=== PATIENT | female | born 1950 | race Caucasian/White ===

== ENCOUNTER 2016-11-12 09:17 | Inpatient (IN) | payer MEDICARE ==
[2016-11-12] VITALS (10 sets, daily range): BP systolic 136–170; BP diastolic 61–90; PULSE 54–71; RESP 13–20; O2SAT 90–97
[~2016-11-12] VITALS: Ht 165.1 cm; Wt 117.1 kg
--- NOTE | 2016-11-12 07:54 | PCM.HPANE ---
Patient Data Surgeon Admitting Provider: Attending Provider:Sage Paz MD Primary Care Physician:Luz Maria Espitia MD Other Provider:Emani Vasquezingham Anesthesia Reason for Visit Left Knee Arthritis LEFT KNEE ARTHRITIS Ht/WT & BMI Height (Feet): 5 Height (Inches): 5 Weight (Kilograms): 120.20 Body Mass Index 44.00 Allergies Coded Allergies: erythromycin base (Verified Allergy, Unknown, 11/08/16) Past Anesthesia History Anesthesia History: Denies:: Anesthesia Reactions Diabetes History Hx Diabetes?: No Medications Blood Thinner: Aspirin Hypertension Medication: Yes Home Meds Incl Beta Bri: Yes Reported Medications Tolterodine Tartrate (Detrol)1 Mg Tablet1 Mg PO BID 11/08/16 Losartan Potassium (Cozaar)50 Mg Gkplxd35 Mg PO DAILY 11/08/16 Levothyroxine 25 Mcg Khvyvt10 Mcg PO DAILY Ref 0 11/08/16 Hydrochlorothiazide 25 Mg Jslyru76 Mg PO DAILY 30 Days Ref 0 11/08/16 Doxazosin (Cardura)8 Mg Tablet8 Mg PO BID Ref 0 11/08/16 Carvedilol (Coreg)12.5 Mg Odgrct73.75 Mg PO BID Ref 0 11/08/16 Aspirin 81 Mg Nrttii54 Mg PO DAILY Ref 0 11/08/16 Discontinued Reported Medications [place]-3 Fatty Acids/Fish Oil ([place] 3 1,000 mg Softgel)1 Each Capsule1 Each PO DAILY 11/08/16 Meloxicam 15 Mg Qkchio29 Mg PO DAILY 30 Days Ref 0 11/08/16 Docusate Sodium (Colace)100 Mg Pzqueon064 Mg PO BID PRN For Constipation Ref 0 11/08/16 Cholecalciferol (Vitamin D3) (Vitamin D3)1,000 Unit Tab.chew1,000 Unit PO DAILY 11/08/16 Atorvastatin (Lipitor)20 Mg Bhyswn35 Mg PO DAILY Ref 0 11/08/16 History History of ENT Problems?: No Hx of Heart Problems?: Yes Cardiovascular History: Positive for:: Cardiac Surgery (3 vessel CABG 2013) Coronary Artery Disease Hypertension Hx of Respiratory Problem?: Yes Respiratory History: Positive for:: Chest Surgery (CABG 2013) Dyspnea (SOB on exertion) Denies:: Oxygen Administration Use of C-PAP Machine Hx Neurologic Problems?: No Hx of GI Problems?: No Hx of Problems?: Yes Genitourinary History: Denies:: Kidney Stones Skin History: Denies:: History Skin Disorders? Pressure Ulcers Hx Musculoskeletal Problems?: Yes Musculoskeletal History: Positive for:: Degenerative Joint Musculoskeletal Trauma (left knee current admission problem) Osteoarthritis Denies:: Joint Replacement Hx of Psycho/Social Problems?: No Hx Surgeries?: Yes (3 vessel CABG) Hx Any Other Health Problems?: Yes Other History: Positive for:: Thyroid Disease Denies:: Cancer Hx Diabetes: No Stop/Bang S-Snoring: Do You Snore Loudly: No T-Tired: feel tired, fatigued: No O-Obsered: Observed not breath: No P-Blood Pressure: treated: Yes B- Body Mass Index > 35 kg/m2: Yes A- Age over 50: Yes N- Neck Large Circumference: Yes G- Gender Male: No MARK Total Score: 4 Risk Assessment Category Category 1A: Patient has history of documented sleep apnea, and HAS NOT received any narcotic, sedative or anesthesia administration during this stay. Category 1B: Patient has history of documented sleep apnea, and HAS received any narcotic , sedative or anesthesia administration during this stay Category 2: Patient has SUSPECTED Obstructive Sleep Apnea, and HAS received any narcotic , sedative or anesthesia administration during this stay. Category 3: Patient has SUSPECTED Obstructive Sleep Apnea and HAS NOT received narcotic, sedative or anesthesia administration during this stay. Category 4: Outpatient in Procedural Areas with known sleep apnea or who screen positive for High Risk via the STOP/BANG questionnaire. Exam Exam General Appearance: Oriented X3, Cooperative, No Acute Distress HEENT/AIRWAY: MP 2 Lungs: Normal Air Movement Heart: Regular Rate/Rhythm Plan Impression Patient chart reviewed, patient interviewed and anesthestic plan with risks, benefits, and alternatives discussed, and informed consent obtained. ASA Physical Status: ASA3 Severe Disease Anesthetic Plan: Regional Block, Ultra Sound, SAB Bene/Risks/Altern/Consents: Yes HP Complete Prior to Induction: Yes Sandy Griffin DO Nov 12, 2016 07:54
[~2016-11-12 09:17] MED LIST: ASPI-973 PO; ATOR20TA PO; CAR8A PO; CARV12.5 PO; CHOL10008 PO; CeFAZolin Inj 3 Gm/ D5W 50 mL Bag IV ONE; DOCU-41 PO; HYDR25TA4 PO; LEVO25TA5 PO; LOSA50TA3 PO; Lactated Ringer's 1,000 ML IV ONE; MELO-253 PO; OMEG1CAP56 PO; TOLT1TAB2 PO; Vancomycin Inj 1,000 MG in IV Premix 1 EACH IV ONE; fentaNYL-PF 50 mCg/mL 2 mL Inj ONE
[2016-11-12] MEDS ORDERED: Lactated Ringer's 1,000 ML IV ONE ×2 (09:56→16:02)
[2016-11-12] MEDS ORDERED: Bupivacaine Liposome 1.3% 20 mL Inj ONE (12:17)
[2016-11-12] MEDS ORDERED: Bupivacaine Liposome 1.3% 20 mL Inj INFILTRATE ONE (13:43)
[2016-11-12] MEDS ORDERED: Bupivacaine-MPF 0.25%/EPI 30 mL Inj INFILTRATE ONE (13:43)
[2016-11-12] MEDS ORDERED: Gentamicin 40 mg/mL 2 mL Inj IRRIGATION ONE (13:43)
[2016-11-12] MEDS ORDERED: Lactated Ringer's 500 ML IV PRN (13:47)
[2016-11-12] MEDS ORDERED: Lactated Ringer's 1,000 ML IV SCH (13:47)
[2016-11-12] MEDS ORDERED: Phenylephrine 10,000 mCg/mL Inj IVPUSH PRN (13:50)
[2016-11-12] MEDS ORDERED: Ondansetron 2 mg/mL 2 mL Inj IVPUSH PRN (13:50)
[2016-11-12] MEDS ORDERED: EPHEDrine Sulfate 50 mg/mL Inj IVPUSH PRN (13:50)
[2016-11-12] MEDS ORDERED: MetoCLOpramide 5 mg/mL 2 mL Inj IVPUSH PRN (13:50)
[2016-11-12] MEDS ORDERED: HYDROmorphone 1 mg/mL Inj IVPUSH PRN (13:50)
[2016-11-12] MEDS ORDERED: fentaNYL-PF 50 mCg/mL 2 mL Inj IVPUSH PRN (13:50)
[2016-11-12] MEDS ORDERED: Ropivacaine-PF 0.5% 30 mL Inj ONE (14:00)
[2016-11-12] MEDS ORDERED: Dexamethasone 4 mg/mL Inj ONE (14:00)
[2016-11-12] MEDS ORDERED: Lidocaine PF 1% 30 mL Inj ONE (14:00)
[2016-11-12 15:48] LABS: APPEARANCE,URINE HAZY (CLEAR,HAZY); COLOR,URINE STRAW (YELLOW); OCCULT BLOOD,URINE NEGATIVE (NEGATIVE); PH,URINE 5.5 (5.0-8.0); UROBILINOGEN,URINE NORMAL (NORMAL)
--- NOTE | 2016-11-12 15:51 | DRSVH ---
PROCEDURE: X-RAY LEFT KNEE, ONE OR TWO VIEWS ([id number]) INDICATIONS: CHECK ALIGNMENT TECHNIQUE: 3 view(s) of the knee acquired. COMPARISON: None. FINDINGS: Bones: Patient is status post knee joint arthroplasty. Hardware components are in expected position s. Visualized bony structures are intact. Soft tissues: Overlying postoperative changes are noted. IMPRESSION: Expected appearance status post left knee arthroplasty. Dictated by: Gucci Nuñez [facility] Interpreted: Marti Dai MD on 11/12/2016 at 15:50 Transcribed by: MARINO on 11/12/2016 at 15:50 Approved by: Marti Dai MD, PhD on 11/12/2016 at 17:10
--- NOTE | 2016-11-12 16:05 | NUR ---
transfer pacu to osc 1022 arrived on floor, a/o x 3, in no apparent distress. hrr, bs cl bilat. dressing cdi, hemovac compressed. at bedside and aware of pt's status, instructed and enc to dbc and ank wave and chiqui pump. i
--- NOTE | 2016-11-12 16:21 | PCM.ANEP1 ---
Post Anesthesia Phase 1 PACU Phase 1 Assessment Vital Signs Vital Signs Date Time Temp Pulse Resp B/P Pulse Ox O2 Delivery O2 Flow Rate FiO2 11/12/16 16:04 36.5 55 18 170/80 96 Nasal Cannula 2 11/12/16 15:46 56 20 165/61 96 Nasal Cannula 2 11/12/16 15:34 56 18 167/76 94 Nasal Cannula 2 11/12/16 15:30 57 18 163/76 97 Nasal Cannula 2 11/12/16 15:25 59 14 159/81 97 Nasal Cannula 2 11/12/16 15:20 54 16 164/69 94 Nasal Cannula 2 11/12/16 15:15 18 94 11/12/16 15:15 56 13 136/71 94 Nasal Cannula 2 11/12/16 15:11 36.1 63 13 147/90 90 Room Air 11/12/16 09:43 36.1 56 16 155/70 95 Room Air Anesthetic Administered: SAB Level of Alertness: Awake, talking GARCES's with Equal Strength: No Pain: No Nausea or Vomiting: No Oxygen Delivery: Room Air Lungs: Normal Air Movement Dermatome Level: L1,2 (Groin) Sandy Griffin DO Nov 12, 2016 16:21
--- NOTE | 2016-11-12 16:22 | PCM.ANEP2 ---
Post Anesthesia Evaluation ASA/CMS Post Anesthesia VS in Patient's Normal Range?: Yes Resp Stable; Airway Patent?: Yes CV Function & Hydration Stable: Yes Mental Status Recovered?: Yes Pain control Satisfactory?: Yes N/V Control Satisfactory?: Yes Sandy Griffin DO Nov 12, 2016 16:22
[2016-11-12] MEDS ORDERED: Alum-Mag Hydrox-Simeth 30 mL Suspension PO PRN (16:30)
[2016-11-12] MEDS ORDERED: Ondansetron 8 mg ODT Tablet PO PRN (16:30)
[2016-11-12] MEDS ORDERED: Magnesium Hydroxide 10 mL Oral Concentration PO PRN (16:30)
[2016-11-12] MEDS ORDERED: MetoCLOpramide 5 mg/mL 2 mL Inj IV PRN (16:30)
[2016-11-12] MEDS ORDERED: Sodium Biphos-Phos 133 mL Enema RECTAL PRN (16:30)
[2016-11-12] MEDS ORDERED: HYDROcodone-APAP 5-325 mg Tablet PO PRN (16:30)
[2016-11-12] MEDS: Lactated Ringer's 1,000 ML IV SCH (16:30)
[2016-11-12] MEDS ORDERED: Ondansetron 2 mg/mL 2 mL Inj IV PRN (16:30)
[2016-11-12] MEDS ORDERED: LORazepam 0.5 mg Tablet PO PRN (16:30)
[2016-11-12] MEDS ORDERED: diphenhydrAMINE 25 mg Capsule PO PRN (16:30)
--- NOTE | 2016-11-12 17:47 | OP ---
[address] [address] OPERATIVE REPORT PATIENT: FRANCES LOPEZ : 1950 MR#: [id number] ADMIT: 11/12/2016 JOB ID: [id number] DATE OF SURGERY: 11/12/2016 PREOPERATIVE DIAGNOSIS(ES): Severe arthritis, left knee. POSTOPERATIVE DIAGNOSIS(ES): Severe arthritis, left knee. PROCEDURE: Total knee arthroplasty. SURGEON: Sage Paz MD. TAXATION CONSULTANT: Vianney Iniguez PA-C. Cathode Maker required due to the major complexity of the operation. INDICATIONS: This woman has had profound osteoarthritis symptoms uncontrolled by conservative treatment techniques. She elects for total knee arthroplasty. She understands and accepts the potential for risks and complication which include but are not limited to infection, thromboembolic, neurovascular events as well as potential for implant failure. Understanding these, she wishes to proceed. DESCRIPTION OF PROCEDURE: The patient prepped draped in usual sterile fashion. An anteromedial approach made and the patella was subluxed laterally, cut transversely, sized to a 32. Drill holes were made. Drill hole placed in distal femur and a 5 degree valgus distal femoral cut was made. The alignment apparatus was assembled and the knee was sized to an 8 chamfer cutting block, fixed in appropriate position of rotation, drill holes and chamfer cuts were made. The tibia was cut with the extramedullary tool. Bone fragment removed. It was sized to an E component which was fixed in appropriate position of rotation and trial reductions performed. This knee had very severe motion loss preoperatively of 25 degree flexion contracture with only 80 degrees flexion. Full range of motion was achieved on the table with this construct. All meniscal tissue and osteophytes carefully removed including very large osteophyte off the posterior condyle. Wound was irrigated with sterile irrigant and pressurized lavage followed by pressurized cementation of the components. Excess cement was removed during the curing process. Final construct was assembled. Tourniquet let down. Hemostasis achieved. The knee closed with #2 Quill deep followed by 2-0 Vicryl, 3-0, and a 4-0 intracuticular stitch.
[2016-11-12] MEDS: hydrOXYzine Pamoate 25 mg Capsule PO PRN ×2 (18:24→22:11)
[2016-11-12] MEDS: oxyCODONE-Acetamin 5-325 mg Tablet PO PRN ×3 (18:24→22:10)
[2016-11-12] MEDS: CeFAZolin 2 Gm/50 mL D5W Premix IV SCH (22:13)
[2016-11-12] MEDS: Ketorolac 15 mg/mL Inj IV SCH (22:16)
[2016-11-13 00:55] VITALS: BP 162/79; PULSE 63; RESP 18; O2SAT 94
[2016-11-13] MEDS: Ketorolac 15 mg/mL Inj IV SCH ×2 (02:30→08:46)
[2016-11-13 04:51] VITALS: BP 143/76; PULSE 58; RESP 20; O2SAT 97
[2016-11-13] MEDS: CeFAZolin 2 Gm/50 mL D5W Premix IV SCH (04:57)
[2016-11-13] MEDS: oxyCODONE-Acetamin 5-325 mg Tablet PO PRN ×4 (04:58→20:58)
[2016-11-13 06:00] LABS: BASOPHILS % (AUTO) 0 % (0-3); EOSINOPHILS % (AUTO) 0 % (0-5); Mean Corpuscular Hemoglobin 31.1 pg (27.0-35.0); NEUTROPHILS % (AUTO) 84.9 % (40-74); Platelet Count 211 bil/L (150-400)
[2016-11-13] MEDS ORDERED: CeFAZolin Inj 3 Gm/ D5W 50 mL Bag IV ONE (06:00)
--- NOTE | 2016-11-13 07:12 | PCM.PNORTH ---
Subjective Date of Service: Nov 13, 2016 Visit Information: Reason for Visit Left Knee Arthritis Surgery/Surgery Date L TKA 11/12/16 Post-Op Day # Date of Admission: Nov 12, 2016 at 16:20 Hospital Day # Subjective Found patient awake and alert this morning. Well positioned in bed. No complaints of pain at this time. Discussed usual course of treatment postop and encourage participation with formal physical therapy for mobility. Patient relates that she has been in a state of reduced mobility for some time secondary to her knee and I have encouraged her to take advantage of physical therapy to begin regaining mobility immediately. Patient also relates she has 1 -2 steps within her home to move about and I have asked her to communicate this to physical therapy for step training. Patient relates that she has her spouse at home which will be her caregiver. We have discussed discharge requirements on postop day 3 and patient understands this. Postop General: No Complaints, No Shortness of Breath, No Chest Pain, Good Appetite Pain Management: PO Objective Exam Objective Orientation: Alert and oriented 3 and pleasant. Dressing: Interoperative dressing is clean dry and intact. Wound: Not observed today. Compartments: Calf and thigh are soft and nontender. Mobility/sensation: Toe wiggle and sensation are intact at left lower extremity distally. Abduction wedge: None TONJA hose: Bilateral TONJA hose will be ordered today. Gutierrez: Pleasant and working Drain: Present and working Gait: No gait yet with physical therapy as of this time. Vital Signs and I/O Vital Sign - Last Date Time Temp Pulse Resp B/P Pulse Ox O2 Delivery O2 Flow Rate FiO2 11/13/16 04:51 36.4 58 20 143/76 97 Nasal Cannula 2.00 Intake and Output 11/12/16 11/12/16 11/13/16 Cumulative From/Thru 15:00 23:00 07:00 11/08/16 12:42 - 11/13/16 04:51 Intake Total 1420 ml 100 ml 375 ml 1895 ml Output Total 335 ml 600 ml 425 ml 1360 ml Balance 1085 ml -500 ml -50 ml 535 ml Intake Oral 375 ml 375 ml IV Total 1420 ml 100 ml 1520 ml Output Urine Total 300 ml 590 ml 400 ml 1290 ml Drainage Total 10 ml 25 ml 35 ml Estimated Blood Loss 35 ml 35 ml # Bowel Movements 0 0 Lab & Micro Results Laboratory Tests Test 11/12/16 15:26 11/13/16 05:40 Urine Color Straw (YELLOW) Urine Appearance Hazy (CLEAR,HAZY) Urine pH 5.5 (5.0-8.0) Urine Specific [place] 1.020 (1.003-1.035) Urine Protein Negativemg/dL (NEG,TRACE) Urine Glucose (UA) Negativemg/dL (NEGATIVE) Urine Ketones Negativemg/dL (NEGATIVE) Urine Occult Blood Negative (NEGATIVE) Urine Nitrite Negative (NEGATIVE) Urine Bilirubin Negative (NEGATIVE) Urine Urobilinogen Normalmg/dL (NORMAL) Urine Leukocyte Esterase Negative (NEGATIVE) Urine RBC 0-2/hpf (0-2) Urine WBC 0-5/hpf (0-5) Urine Epithelial Cells Occasional/hpf (NONE-MOD) Urine Crystals None seen (NONE SEEN) Urine Bacteria None/hpf (NONE-FEW) Urine Hyaline Casts None/lpf (NONE) Urine Granular Casts None seen (NONE SEEN) Urine Waxy Casts None seen (NONE SEEN) Urine Red Blood Cell Casts None seen (NONE SEEN) Urine White Blood Cell Casts None seen (NONE SEEN) Urine Mucus None seen (None Seen) Urine Trichomonas None seen (NONE SEEN) Urine Yeast None (NONE SEEN) Urinalysis Comment None Urine Culture Reflexed Not indicated White Blood Count 12.9th/mm3 (3.8-10.1) Red Blood Count 3.99mil/mm3 (3.90-5.20) Hemoglobin 12.4g/dL (12.0-15.6) Hematocrit 37.5% (35.0-46.0) Mean Corpuscular Volume 94.0fL (81-100) Mean Corpuscular Hemoglobin 31.1pg (27.0-35.0) Mean Corpuscular Hemoglobin Concent 33.1% (32.0-37.0) Red Cell Distribution Width 12.4% (12.3-15.4) Platelet Count 211bil/L (150-400) Neutrophils (%) (Auto) 84.9% (40-74) Lymphocytes (%) (Auto) 7.9% (14-46) Monocytes (%) (Auto) 7.0% (4-12) Eosinophils (%) (Auto) 0% (0-5) Basophils (%) (Auto) 0% (0-3) Result Diagram: 11/13/16 0540 General Appearance: Alert, Oriented X3, Cooperative, No Acute Distress Extremities: No Compartment Syndrom Noted, Thigh & Calf Soft/Nontender Postop Sensory Motor: Distal Motor Intact, Movement in Toes, Distal Sensation Intact SURGICAL WOUND : Drain Location Body Site: Knee Wound Drainage Type: Hemovac Activity: Activity per PT, Ambulate with PT (weightbearing as tolerated on the left lower extremity using front wheeled walker.) Catheters: Urethral 2 Way Gutierrez (Gutierrez to be removed postop day 1 after first PT session.) Assessment & Plan Impression Patient is a 66-year-old female who is one-day status post left total knee arthroplasty performed on 11/12/2016. Patient had a reduced level of mobility for some time prior to surgery secondary to knee pain and dysfunction. This may impact mobility postop. Problems: Plan Postop day # 1 from left total knee arthroplasty performed on 11/12/[address] Sage Paz. Weight bearing status: Weightbearing as tolerated on the left lower extremity Mobility aid: Front-wheeled walker Immobilization: None Precautions: Standard total knee precautions. Physical therapy: Continue formal physical therapy for mobility, gait and safety. Patient's spouse is arranging outpatient physical therapy to begin as soon as possible post discharge. Patient had significantly reduced mobility prior to surgery which may impact her mobility postop. Pain control: Continue by mouth pain medication as needed. DVT prophylaxis: ASA 325 mg EC by mouth twice a day 6 weeks postop for DVT prophylaxis. Wound care: Keep wound and dressing clean dry and intact until seen in our office in 2 weeks. Infectious DZ: None Gutierrez: Gutierrez is in an working. Please discontinue Gutierrez today on postop day 1 after first PT session. Please use bedside commode if patient is unable to get to bathroom. Dressing: Interoperative dressing is clean dry and intact. This dressing will be changed on postop day #2. Drain: Perioperative drain is in an working. This should be discontinued today on postop day 1 at 24 hours postop. Abduction wedge: None TONJA hose: Bilateral TONJA hose will be ordered and left TONJA hose should be applied on postop day 2 after dressing change. Nursing communication: 2-week follow-up: Follow-up in 2 weeks at [facility] orthopedic clinic on prearranged appointment with mid-level provider for wound check and suture removal. 6-week follow-up: Follow-up in 6 weeks at [facility] orthopedic clinic with Dr. Sage Paz with 2 view left knee x-rays on arrival. Discharge plan: Anticipate discharge to home with spouse as caregiver on or before postop day #3 Iván Walker PA-C Nov 13, 2016 07:11
[2016-11-13] MEDS: Lactated Ringer's 1,000 ML IV SCH (09:59)
[2016-11-13 10:16] VITALS: BP 158/82; PULSE 62; RESP 17; O2SAT 98
[2016-11-13 13:32] VITALS: BP 178/82; PULSE 61; RESP 18; O2SAT 97
--- NOTE | 2016-11-13 16:03 | NUR ---
Social work Continued Discharge Planning: SW attempted to meet with patient at bedside. Patient bust by staff at this time. SW to report at a later time. Patient is a 66 year old female admitted on 11/12/16 for left knee arthritis. Patient resides in [place] with . Patient working with therapy and therapy recommending home vs SNF. Recommendations for home with further progression with rehab per notes. SW to follow up with PT to ensure home safety at discharge. SW to follow. PLAN: Home with via POV, pending clinical course and further PT progression. SW to follow. Dung HER
[2016-11-13] MEDS: hydrOXYzine Pamoate 25 mg Capsule PO PRN ×2 (16:12→20:56)
--- NOTE | 2016-11-13 19:46 | NUR ---
Blakely Catheter, Hemovac Removal Blakely catheterremoved per orders. Patient voiding without difficulty post blakely removal. Hemovac tubing disconnected during patient care. Hemovac removed, pressure applied, dressing placed over removal site. Care is ongoing.
[2016-11-13 20:00] VITALS: BP 131/69; PULSE 64; RESP 18; O2SAT 92
[2016-11-14] MEDS: hydrOXYzine Pamoate 25 mg Capsule PO PRN ×2 (01:09→06:47)
[2016-11-14] MEDS: oxyCODONE-Acetamin 5-325 mg Tablet PO PRN ×4 (01:10→19:38)
[2016-11-14] MEDS: Lactated Ringer's 1,000 ML IV SCH ×2 (01:50→18:30)
--- NOTE | 2016-11-14 02:45 | NUR ---
Pain VSS and ORTHOS WNL.Pain controlled with po analgesia.Dressing CD&I.Up with SBA and FWW and moving well.Sleeping intermittently and resting comfortably at this time.Will cont. to monitor.
[2016-11-14 04:45] VITALS: BP 176/81; PULSE 68; RESP 16; O2SAT 95
--- NOTE | 2016-11-14 08:36 | PCM.PNORTH ---
Subjective Date of Service: Nov 14, 2016 Visit Information: Reason for Visit Left Knee Arthritis Surgery/Surgery Date L TKA 11/12/16 Post-Op Day # Date of Admission: Nov 12, 2016 at 16:20 Hospital Day # Subjective Found patient sleeping this morning and easily awakened. No complaints of pain at this time. Patient does state however that she had a difficult night with increased pain. In talking the patient this morning it is apparent she is heavily medicated and has difficulty staying awake responding to questions or following commands. Postop General: No Complaints, No Shortness of Breath, No Chest Pain, Good Appetite Pain Management: PO Objective Exam Objective Orientation: Patient is somewhat obtunded and appears to be over medicated at this time with difficulty in maintaining alertness to receive questions and commands. Dressing: Interoperative dressing is clean dry and intact. This is changed to postop dressing this morning with Silverlon, ABDs and a fishnet. Wound: Wound is in very good condition and is dry with no focal swelling and no erythema. Compartments: Calf and thigh are soft and nontender. Mobility/sensation: Toe wiggle and sensation are intact at left lower extremity distally. Abduction wedge: None TONJA hose: None Gutierrez: Absent Drain: Absent Gait: Gait 20 feet with formal physical therapy on 11/13/2016. Recommendation is for discharge to staff at this time. Vital Signs and I/O Vital Sign - Last Date Time Temp Pulse Resp B/P Pulse Ox O2 Delivery O2 Flow Rate FiO2 11/14/16 04:45 36.7 68 16 176/81 95 Nasal Cannula 2.00 Intake and Output 11/13/16 11/13/16 11/14/16 Cumulative From/Thru 15:00 23:00 07:00 11/08/16 12:42 - 11/13/16 18:37 Intake Total 1343 ml 3238 ml Output Total 615 ml 1975 ml Balance 728 ml 1263 ml Intake Oral 1343 ml 1718 ml IV Total 1520 ml Output Urine Total 575 ml 1865 ml Drainage Total 40 ml 75 ml Estimated Blood Loss 35 ml # Bowel Movements 0 Result Diagram: 11/13/16 0540 General Appearance: Oriented X3, Cooperative, No Acute Distress, Other ( somnolence this morning apparently due to pain medication.) Extremities: No Compartment Syndrom Noted, Thigh & Calf Soft/Nontender Postop Sensory Motor: Distal Motor Intact, Movement in Toes, Distal Sensation Intact SURGICAL WOUND : Drain Location Body Site: Knee Wound Drainage Type: Hemovac Activity: Activity per PT, Ambulate with PT (weightbearing as tolerated on the left lower extremity using front wheeled walker.) Catheters: None Assessment & Plan Impression Patient is a 66-year-old obese female who has participated in formal physical therapy 20 feet yesterday on 11/13/2016. She is somnolent this morning I believe due to pain medication and a rough night for pain at the left knee. Problems: Plan Postop day # 2 from left total knee arthroplasty performed on 11/12/[address] Sage Paz. Weight bearing status: Weightbearing as tolerated on the left lower extremity Mobility aid: Front-wheeled walker Immobilization: None Precautions: Standard total knee precautions. Physical therapy: Continue formal physical therapy for mobility, gait and safety. Patient's spouse is arranging outpatient physical therapy to begin as soon as possible post discharge. Patient had significantly reduced mobility prior to surgery which may impact her mobility postop. Pain control: Continue by mouth pain medication as needed. Nursing please monitor for excessive somnolence secondary to medication for pain. DVT prophylaxis: ASA 325 mg EC by mouth twice a day 6 weeks postop for DVT prophylaxis. Wound care: Keep wound and dressing clean dry and intact until seen in our office in 2 weeks. Infectious DZ: None Gutierrez: Absent Dressing: Interoperative dressing is clean dry and intact. Her operative dressing is removed and changed to postop dressing this morning with Silverlon, ABD and fishnet Drain: Absent Abduction wedge: None TONJA hose: Bilateral thigh high TONJA hose have been ordered and should be applied as soon as possible today. Nursing communication: Nursing please apply TONJA hose which were ordered yesterday. If there is a problem with the order or requiring these please let me know. 2-week follow-up: Follow-up in 2 weeks at [facility] orthopedic clinic on prearranged appointment with mid-level provider for wound check and suture removal. 6-week follow-up: Follow-up in 6 weeks at [facility] orthopedic clinic with Dr. Sage Paz with 2 view left knee x-rays on arrival. Discharge plan: Anticipate discharge to home with spouse as caregiver on postop day #3 VTE Prophylaxis: SCDs, TONJA Hose, Other (ASA 325 mg EC by mouth twice a day 6 weeks postop for DVT prophylaxis.) Iván Walker PA-C Nov 14, 2016 08:36
[2016-11-14 13:38] VITALS: BP 138/72; PULSE 67; RESP 18; O2SAT 90
--- NOTE | 2016-11-14 13:58 | NUR ---
Sedation patient medicated this am for pain by night nurse and was quite sleepy for most of morning. Pt did awaken more at lunch time and request something for pain after physical therapy. Pt anticipates dc home tomorrow . Patients hardcopy prescription given to to pre fill for dc .
--- NOTE | 2016-11-14 15:56 | NUR ---
Social Work Initial Assessment: SW met with patient at bedside to discuss discharge plan. Patient verified name, address, and contact information. Patient is a 66 year old female admitted on 11/12/16 for left knee arthritis. Patient states payer as Luz Maria Espitia. Patient payer as [employer]. Patient resides in [place] with Christopher, . Patient has no previous HHC, SNF or AD at this time. Patient pharmacy of choice as [facility]. Patient has a walker at home for use. Patient states being independent with needs and has no identified discharge needs at this time. Patient states she has an outpt PT appointment in [place] on Saturday for continued outpt therapy. SW to follow. PLAN: Home with , pending clinical course. SW to follow. Dung HER Addendum: 11/14/16 at 1614 by TEO MARIA Amended: Links added.
[2016-11-14 20:45] VITALS: BP 149/73; PULSE 70; RESP 16; O2SAT 97
--- NOTE | 2016-11-15 03:30 | NUR ---
Pain Percocet x 2 tabs given for LT knee pain. ABD pad with melissa hose in place. The dressing is cdi and no direct observation to site. VSS afebrile. Continues to sleep intermittently and appears to be asleep at this time.
[2016-11-15] MEDS: oxyCODONE-Acetamin 5-325 mg Tablet PO PRN ×2 (04:20→11:41)
[2016-11-15 05:00] VITALS: BP 128/71; PULSE 64; RESP 16; O2SAT 97
[2016-11-15 07:41] VITALS: BP 158/80; PULSE 59; RESP 18; O2SAT 94
--- NOTE | 2016-11-15 09:00 | NUR ---
Respiratory P: pt oxygen stat is in low 90% RA at times of rest. pt does not use supplemental oxygen at home. I: pt to do deep breathing exercises and to sit in high fowlers position for optimal breathing E: oxygen stat increased to 97% RA
--- NOTE | 2016-11-15 09:16 | PCM.PNORTH ---
Subjective Date of Service: Nov 15, 2016 Visit Information: Reason for Visit Left Knee Arthritis Surgery/Surgery Date L TKA 11/12/16 Post-Op Day # 3 Date of Admission: Nov 12, 2016 at 16:20 Hospital Day # Subjective She feels she is ready to go home today. She has been up multiple times and walked in the hallway. Postop General: No Complaints, No Shortness of Breath, No Chest Pain, Good Appetite Pain Management: PO Objective Exam Objective Patient is seen lying in bed. She has just finished with physical therapy. Vital Signs and I/O Vital Sign - Last Date Time Temp Pulse Resp B/P Pulse Ox O2 Delivery O2 Flow Rate FiO2 11/15/16 07:41 36.6 59 18 158/80 94 Room Air 2.50 Intake and Output 11/14/16 11/14/16 11/15/16 Cumulative From/Thru 15:00 23:00 07:00 11/08/16 12:42 - 11/14/16 20:30 Intake Total 480 ml 638 ml 4356 ml Output Total 500 ml 540 ml 3015 ml Balance -20 ml 98 ml 1341 ml Intake Oral 480 ml 638 ml 2836 ml IV Total 1520 ml Output Urine Total 500 ml 540 ml 2905 ml Drainage Total 75 ml Estimated Blood Loss 35 ml # Bowel Movements 1 1 Result Diagram: 11/13/16 0540 General Appearance: Alert, Oriented X3, Cooperative, No Acute Distress Extremities: Distal Pulses Palpable, No Compartment Syndrom Noted, Thigh & Calf Soft/Nontender Postop Sensory Motor: Distal Motor Intact, NVI Distally SURGICAL WOUND : Wound Location/Description Dressing is clean dry and intact. Thigh-high TONJA hose are in place Activity: Activity per PT, Ambulate with PT (weightbearing as tolerated on the left lower extremity using front wheeled walker.) Catheters: None Assessment & Plan Impression Status post left TKA Problems: Plan Weightbearing: Weightbearing as tolerated with walker DVT prophylaxis: aspirin 325 mg twice a day 6 weeks Physical therapy for transfers, progressive ambulation, therapeutic exercise Wound care: Change dressing every couple of days if needed. The patient may shower if the wound has no drainage present for 24 hours. Wound may be uncovered to shower. Let soap and water run over the wound, pat dry and apply a new dressing. Do not remove the Steri-Strips. Wear compression stockings for 3-4 weeks after surgery on the surgical leg Discharge plan: Discharge home today. Start outpatient physical therapy as scheduled Follow-up plan: In 2 weeks at [facility] with ROXANNA for wound check and at [address] Paz with x-rays Pain Management: Percocet, Vistaril VTE Prophylaxis: SCDs, TONJA Hose, Other (ASA 325 mg EC by mouth twice a day 6 weeks postop for DVT prophylaxis.) Resuscitation Status: CPR: Attempt Resuscitation [place] PA-C Nov 15, 2016 09:16
--- NOTE | 2016-11-15 09:19 | PCM.DIORTH ---
Ortho Discharge Instruction Date of Service: Nov 15, 2016 Dates of Hospitalization Date of Hospital Admission Nov 12, 2016 at 16:20 Providers Admitting Physician: Sage Paz MD Primary Care Physician: Luz Maria Espitia MD Attending Physician: Sage Paz MD Diet Discharge Diet: No restrictions Activity Discharge Activity-General: Balance rest and activity, Ice incision 3-5 time/ day for 20min Left Lower Extremity: Weight Bearing as tolerated Range of motion restrictions: Work on bending and straightening multiple times a day. It will be sore but it is OK to push it. Discharge Assist Device: Front Wheeled Walker Dressing and Incisional Care Discharge Dressing Care: Keep dressing clean, dry & intact Discharge Hygiene: May shower (see instructions below) Additional Instructions Discharge Instructions Weightbearing: Weightbearing as tolerated with walker DVT prophylaxis: aspirin 325 mg twice a day 6 weeks Physical therapy for transfers, progressive ambulation, therapeutic exercise Wound care: Change dressing every couple of days if needed. The patient may shower if the wound has no drainage present for 24 hours. Wound may be uncovered to shower. Let soap and water run over the wound, pat dry and apply a new dressing. Do not remove the Steri-Strips. Wear compression stockings for 3-4 weeks after surgery on the surgical leg Start outpatient physical therapy as scheduled Follow Up Plan Follow Up Plan Follow-up plan: In 2 weeks at [facility] with ROXANNA for wound check and at [address] Paz with x-rays Call your provider for: Fever, Chills, Shortness of breath, Vomitting, Drainage at incision, Wound redness Mirna Colin PA-C Nov 15, 2016 09:19
[2016-11-15] MEDS ORDERED: HYDR-3797 PO (10:19)
[2016-11-15] MEDS ORDERED: OXYC1TAB24 PO (10:19)
[2016-11-15] MEDS ORDERED: ONDA4TAB9 PO (10:19)
[2016-11-15] MEDS ORDERED: Aspirin-Expunged Drug, Do Not Renew! PO (10:19)
--- NOTE | 2016-11-15 10:23 | PCM.DC.ORT ---
Discharge Summary Date of Service: Nov 15, 2016 Date of Hospital Admission: Nov 12, 2016 at 16:20 Date of Surgery: Nov 12, 2016 Date of Discharge: Nov 15, 2016 Reason for Hospitalization: Left knee arthritis Procedures Performed: Left total knee arthroplasty Hospital Course: The patient was admitted to the hospital on 11/12/2016 and underwent the above procedure. Antibiotic prophylaxis consisting of Ancef and vancomycin. The surgeon was Dr. Paz. A Gutierrez was placed perioperatively. Patient tolerated the procedure well and was transferred to recovery room in stable condition. Gutierrez was discontinued on postop day 1. Patient had physical therapy to work on ambulation and transfers. Weightbearing as tolerated with walker. Pain was managed with Dilaudid, Percocet, Vistaril, Toradol. DVT prophylaxis: Aspirin 325 mg twice a day, thigh-high TONJA hose, SCDs. Patient progressed well with physical therapy and on POD-3 was discharged home. Follow- up: at [facility] 2 weeks postop for wound check and at [address] Paz with x-ray Diagnosis at Time of Discharge Status post left TKA Problems: Disposition: Discharged home in stable condition. Patient will start outpatient physical therapy on Saturday Discharge Instructions: Weightbearing: Weightbearing as tolerated with walker DVT prophylaxis: aspirin 325 mg twice a day 6 weeks Physical therapy for transfers, progressive ambulation, therapeutic exercise Wound care: Change dressing every couple of days if needed. The patient may shower if the wound has no drainage present for 24 hours. Wound may be uncovered to shower. Let soap and water run over the wound, pat dry and apply a new dressing. Do not remove the Steri-Strips. Wear compression stockings for 3-4 weeks after surgery on the surgical leg Discharge plan: Discharge home today. Start outpatient physical therapy as scheduled Follow-up plan: In 2 weeks at [facility] with PA for wound check and at [address] Paz with x-rays ([Aspirin-Expunged Drug, Do Not Renew!]) 325 MG TABLET 325 MG PO BID Carvedilol (Coreg) 12.5 Mg Tablet 18.75 MG PO BID Doxazosin (Cardura) 8 Mg Tablet 8 MG PO BID Hydrochlorothiazide (Hydrochlorothiazide) 25 Mg Tablet 25 MG PO DAILY Hydroxyzine Pamoate (HydrOXYzine Pamoate) 25 Mg Capsule 25 MG PO Q6H PRN PRN For Spasm Levothyroxine (Levothyroxine) 25 Mcg Tablet 25 MCG PO DAILY Losartan Potassium (Cozaar) 50 Mg Tablet 50 MG PO DAILY Ondansetron ODT (Zofran ODT) 4 Mg Tablet 4 MG PO Q4H PRN PRN For Nausea Tolterodine Tartrate (Detrol) 1 Mg Tablet 1 MG PO BID oxyCODONE-Acetaminophen 5-325 mg (oxyCODONE-Acetaminophen 5-325 mg) 1 Each Tablet 1-2 TAB PO Q4H PRN PRN For Severe Pain Max 8 per day Mirna Colin PA-C Nov 15, 2016 10:15
[2016-11-15] MEDS: Lactated Ringer's 1,000 ML IV SCH (11:10)
--- NOTE | 2016-11-15 12:05 | NUR ---
Discharge pt discharged to home with at 1200; left unit via w/c. A&Ox3, GARCES, VSS, IV dcd intact, All personal belongings in hand, CareNotes and instructions provided on dc dx, new meds and s/sx to seek medical attention for, Pain present - tolerable - pt requested dosing prior to leaving d/t having long drive on way to home. No unanswered questions/concerns, Dressing CDI.
== END 2016-11-15 11:57 | disposition home or self-care (01) | DRG 470 ==
LOC: SAS 09:17 → OSC 16:20
PROVIDERS: ADMIT Orthopaedic Surgery; ATTEND Orthopaedic Surgery
PROC: 0SND0ZZ Release Left Knee Joint, Open Approach (ICD-10-PCS; 2016-11-12)
PROC: 0SRD0J9 Replacement of Left Knee Joint with Synthetic Substitute, Cemented, Open Approach (ICD-10-PCS; principal; 2016-11-12 11:00)
DX: M17.12 Unilateral primary osteoarthritis, left knee (principal); I10 Essential (primary) hypertension; Z98.61 Coronary angioplasty status; M24.562 Contracture, left knee; I25.10 Atherosclerotic heart disease of native coronary artery without angina pectoris